=== PATIENT | female | born 1980 | race Two or more races ===

== ENCOUNTER 2020-03-27 02:51 | Emergency (ER) | payer MEDICAID ==
[2020-03-27 03:56] LABS: APPEARANCE,URINE CLOUDY; BILIRUBIN,URINE NEGATIVE (NEGATIVE); COLOR,URINE AMBER; GLUCOSE, URINE 50 mg/dL (NEGATIVE); KETONES,URINE NEGATIVE (NEGATIVE); LEUKOCYTE ESTERASE,URINE MODERATE (NEGATIVE); NITRITE,URINE POSITIVE (NEGATIVE); PROTEIN,URINE 100 mg/dL (NEGATIVE); URINE SPECIFIC GRAVITY 1.023; UROBILINOGEN,URINE NEGATIVE mg/dL (<2.0)
[2020-03-27] MEDS ORDERED: PHENAZOPYRIDINE HCL 200 MG TABLET PO ONE (05:46)
[2020-03-27] MEDS ORDERED: CEPHALEXIN 500 MG CAPSULE PO ONE (05:46)
--- NOTE | 2020-03-27 05:50 | ER Document Report ---
HPI - HPI Time Seen by Provider: 03/27/20 05:41 Pain Level: 5 Context: Patient is a 40-year-old female who comes emergency department chief complaint of painful urination and cramping in her mid lower abdomen that started over the past day. She denies flank pain, fever, nausea or vomiting. She denies history of kidney stones. She denies vaginal discharge or bleeding. She denies . - REPRODUCTIVE Reproductive: DENIES: : Past Medical History - General Information source: Patient - Social History Smoking Status: Never Smoker Frequency of alcohol use: None Drug Abuse: None Lives with: Family Family History: Reviewed & Not Pertinent Patient has homicidal ideation: No - Immunizations Hx Diphtheria, Pertussis, Tetanus Vaccination: Yes Vertical Provider Document - CONSTITUTIONAL General Appearance: WD/WN, No Apparent Distress - HEENT HEENT: Atraumatic, Normocephalic, Pharyngeal Tenderness - NECK Neck: Normal Inspection - RESPIRATORY Respiratory: Breath Sounds Normal, No Respiratory Distress - CARDIOVASCULAR Cardiovascular: Regular Rate, Regular Rhythm - GI/ABDOMEN Gastrointestinal: Abdomen Soft. negative: Abdomen Non-Tender - There is some suprapubic tenderness on exam, however abdomen is soft and benign otherwise, no guarding or rigidity, no rebound tenderness - BACK Back: Normal Inspection. negative: CVA Tenderness-Right, CVA Tenderness-Left - MUSCULOSKELETAL/EXTREMETIES Musculoskeletal/Extremeties: MAEW, FROM, Non-Tender - NEURO Level of Consciousness: Awake, Alert, Appropriate - DERM Integumentary: Warm, Dry, No Rash Course - Re-evaluation Re-evalutation: Urine is grossly infected, cultured. Placed on antibiotics. Vital signs unr emarkable here, patient is nontoxic and well-appearing, she does have suprapubic tenderness suggesting cystitis. Discussed treatment, follow-up, and return precautions. Provided with Diflucan on request. Patient states understanding and agreement. - Vital Signs Vital signs: Temp Pulse Resp BP Pulse Ox 98.2 F 92 16 143/100 H 97 03/27/20 03:31 03/27/20 03:31 03/27/20 03:31 03/27/20 03:31 03/27/20 03:31 - Laboratory Laboratory results interpreted by me: 03/27/20 03:30 Urine Protein 100 H Urine Glucose (UA) 50 H Urine Blood LARGE H Urine Nitrite POSITIVE H Ur Leukocyte Esterase MODERATE H Discharge - Discharge Clinical Impression: Dysuria Urinary tract infection Qualifiers: Urinary tract infection type: site unspecified Hematuria presence: with hematuria Qualified Code(s): N39.0 - Urinary tract infection, site not specified Condition: Stable Disposition: HOME, SELF-CARE Additional Instructions: Your evaluation, symptoms, and testing are most consistent with a bladder infection (cystitis). Take the antibiotics as prescribed to completion. After completion of the antibiotics take the Diflucan to avoid a yeast infection. Follow-up with primary care for additional management. Return if you worsen including developing severe abdominal or flank pain, vomiting, fever, or any other concerning or worsening symptoms. Prescriptions: Fluconazole [Diflucan] 150 mg PO ONCE PRN #3 tablet PRN Reason: Cephalexin Monohydrate [Keflex 500 mg Capsule] 500 mg PO BID 7 Days #14 capsule Forms: Return to Work
[2020-03-27 06:02] VITALS: BP 142/99
== END 2020-03-27 06:20 | disposition home or self-care (01) ==
LOC: ER 02:51
DX: N39.0 Urinary tract infection, site not specified (principal); R30.0 Dysuria; R10.30 Lower abdominal pain, unspecified
CPT/HCPCS: 99283; 87086; 81025; 87088; 81001; J3490; 87186

== ENCOUNTER 2020-04-30 14:56 | Emergency (ER) | payer MEDICAID ==
--- NOTE | 2020-04-30 16:51 | ER Document Report ---
HPI - HPI Time Seen by Provider: 04/30/20 16:49 Notes: 40-year-old female patient presenting with pain to the base of her left fifth toe after she states she stepped on a child's toy just prior to arrival. She declines the need for any pain medication. - ROS Systems Reviewed and Negative: Yes All other systems reviewed and negative - REPRODUCTIVE Reproductive: DENIES: : - MUSCULOSKELETAL Musculoskeletal: REPORTS: Extremity pain Past Medical History - General Information source: Patient - Social History Smoking Status: Never Smoker Frequency of alcohol use: None Drug Abuse: None Family History: Reviewed & Not Pertinent - Past Medical History Cardiac Medical History: Reports: Hx Hypertension Past Surgical History: Reports: Hx Cholecystectomy - Immunizations Hx Diphtheria, Pertussis, Tetanus Vaccination: Yes Vertical Provider Document - CONSTITUTIONAL Notes: PHYSICAL EXAMINATION: GENERAL: Well-appearing, well-nourished and in no acute distress. HEAD: Atraumatic, normocephalic. EYES: Pupils equal round extraocular movements intact, conjunctiva are normal. ENT: Nares patent NECK: Normal range of motion LUNGS: No respiratory distress Musculoskeletal: Normal range of motion NEUROLOGICAL: Normal speech. PSYCH: Normal mood, normal affect. SKIN: Swelling and ecchymosis noted to base of fifth toe on the left foot. Strong dorsalis pedis pulse, cap refill less than 3 seconds. Normal motor and sensation distally. Course - Re-evaluation Re-evalutation: Foot X-Ray 04/30/20 16:50 IMPRESSION: Oblique nondisplaced fracture of the 5th proximal phalanx. - Vital Signs Vital signs: Temp Pulse Resp BP Pulse Ox 98.7 F 82 16 161/117 H 100 04/30/20 15:03 04/30/20 15:03 04/30/20 15:03 04/30/20 15:03 04/30/20 15:03 Procedures - Immobilization Left foot Pre-Proc Neuro Vasc Exam: Normal Immobilizer type: Crutches, Post-op shoe Performed by: PCT Post-Proc Neuro Vasc Exam: Normal Alignment checked and good: Yes Discharge - Discharge Clinical Impression: Toe fracture Qualifiers: Encounter type: initial encounter Toe: lesser toe Fracture type: closed Phalanx: middle Fracture alignment: nondisplaced Laterality: left Qualified Code(s): S92.525A - Nondisplaced fracture of middle phalanx of left lesser toe (s), initial encounter for closed fracture Condition: Stable Disposition: HOME, SELF-CARE Additional Instructions: Fractured Toe You have fractured your toe. Although this fracture doesn't need a cast or splint, emergency evaluation was needed to assess the straightness of the bones and joints. Reduction ("setting") is necessary for toe fractures which are crooked or twisted. A toe fracture will heal in about three weeks. Usually, the fractured toe is taped to the next toe. The second toe acts as a moving splint to protect the broken one. Ice and elevation help during the first 48 hours. You may need crutches at first if walking is painful. When you begin walking, be careful NOT to do things that hurt. If weight bearing is not comfortable within a few days, you may require a special shoe, walking boot, or cast. Call the doctor or return at once if severe swelling, severe pain, or numbness develop in the toe, or if you suspect you may have re-injured it. Prescriptions: Hydrocodone/Acetaminophen [Tahoma 5-325 mg Tablet] 1 tab PO Q6HP PRN #10 tablet PRN Reason: For Pain Referrals: MIKALA FRIAS MD [ACTIVE STAFF] - Follow up as needed
--- NOTE | 2020-04-30 17:28 | RADIOLOGY REPORT (SQ) ---
EXAM DESCRIPTION: FOOT LEFT COMPLETE IMAGES COMPLETED DATE/TIME: 04/30/2020 5:06 pm REASON FOR STUDY: pain near base of 5th toe COMPARISON: None. NUMBER OF VIEWS: Three views. TECHNIQUE: AP, lateral and oblique radiographic images acquired of the left foot. LIMITATIONS: None. FINDINGS: MINERALIZATION: Normal. BONES: There is an oblique nondisplaced fracture of the 5th proximal phalanx. JOINTS: No effusions. SOFT TISSUES: No soft tissue swelling. No foreign body. OTHER: No other significant finding. IMPRESSION: Oblique nondisplaced fracture of the 5th proximal phalanx. TECHNICAL DOCUMENTATION: JOB ID: [id number] 2010 [employer]- All Rights Reserved Reading location - IP/workstation name: [email or web address]
[2020-04-30 18:04] VITALS: BP 149/94
== END 2020-04-30 18:19 | disposition home or self-care (01) ==
LOC: ER 14:56
DX: S92.515A Nondisplaced fracture of proximal phalanx of left lesser toe(s), initial encounter for closed fracture (principal); W22.8XXA Striking against or struck by other objects, initial encounter; I10 Essential (primary) hypertension
CPT/HCPCS: 99284

== ENCOUNTER 2020-10-15 08:54 | Day surgery (SDC) | payer MEDICAID ==
[~2020-10-15 08:54] MED LIST: PROPOFOL INJ 200 MG/20 ML VIAL IV ONE
[2020-10-15 10:56] VITALS: BP 130/92
--- NOTE | 2020-10-15 12:14 | Operative Report ---
Operative Report DATE OF SURGERY: 10/15/20 Operative Report: The risks benefits and alternatives of the procedure explained to the patient in detail and informed consent is obtained.A GIF Olympus video scope was inserted into the patient's mouth and hypopharynx, the esophagus is identified intubated and insufflated, the scope was then advanced through the esophagus stomach and duodenum, retroflexion maneuver is done ,the esophagus stomach and first and second portions of the duodenum examined PREOPERATIVE DIAGNOSIS: Gastroesophageal reflux disease POSTOPERATIVE DIAGNOSIS: Small duodenal polyp status post biopsy removal. Gastritis status post biopsy OPERATION: EGD with biopsy SURGEON: BESSY BENJAMIN ANESTHESIA: LMAC TISSUE REMOVED OR ALTERED: As noted above. COMPLICATIONS: None. ESTIMATED BLOOD LOSS: None. INTRAOPERATIVE FINDINGS: As noted above. PROCEDURE: Patient tolerated the procedure well. No immediate postprocedure complications are noted. Patient is discharged in good condition. Discharge date 10/15/2020. Discharge diet: Regular. Discharge activity: Regular. 2 to 3-week follow-up to discuss findings. Patient is instructed to call the office or proceed to the emergency room should there be any further problems questions. Wait on the pathology.
== END 2020-10-15 10:52 | disposition home or self-care (01) ==
LOC: OROUT 08:54
PROVIDERS: ATTEND Internal Medicine Gastroenterology
DX: K31.7 Polyp of stomach and duodenum (principal); K29.50 Unspecified chronic gastritis without bleeding; K31.89 Other diseases of stomach and duodenum; I10 Essential (primary) hypertension; K21.9 Gastro-esophageal reflux disease without esophagitis; Z79.899 Other long term (current) drug therapy; Z90.49 Acquired absence of other specified parts of digestive tract; Z87.891 Personal history of nicotine dependence
CPT/HCPCS: 43239; 88342 ×2; 88305 ×2; 00731; J2704; 731